=== PATIENT | female | born 1975 | race Caucasian/White ===

== ENCOUNTER 2017-07-22 14:53 | Emergency (ER) | payer MEDICAID, OTHER ==
[2017-07-22] MEDS: KETOROLAC 30 MG INJ IM (17:30)
== END 2017-07-22 18:08 | disposition home or self-care (01) ==
LOC: FTE 14:53
DX: M25.562 Pain in left knee (principal); L28.2 Other prurigo
CPT/HCPCS: 96372; 99284-25

== ENCOUNTER 2017-12-03 14:55 | Emergency (ER) | payer SELFPAY, OTHER, MEDICAID ==
[2017-12-03 16:20] LABS: ADD UMIC YES; UR ASCORBIC ACID NEGATIVE (NEGATIVE); UR BACTERIA FEW /HPF (NONE SEEN); UR BILIRUBIN (Dip) NEGATIVE (NEGATIVE); UR BLOOD (Dip) 3+ mg/dL (NEGATIVE); UR CLARITY SLIGHTLY CLOUDY (CLEAR); UR COLOR YELLOW (YELLOW); UR GLUCOSE (Dip) NEGATIVE (NEGATIVE); UR KETONES (Dip) NEGATIVE (NEGATIVE); UR LEUKOCYTE ESTERASE (Dip) 3+ Leu/ul (NEGATIVE); UR MUCUS FEW /HPF (NONE SEEN); UR NITRITE (Dip) NEGATIVE (NEGATIVE); UR RBC 44 /HPF (0-5); UR SPECIFIC GRAVITY (Dip) 1.016 (1.003-1.030); UR SQUAMOUS EPITHELIAL CELL MODERATE /HPF (FEW); UR TOTAL PROTEIN (Dip) NEGATIVE (NEGATIVE); UR UROBILINOGEN (Dip) NEGATIVE (NEGATIVE); UR WBC 27 /HPF (0-5)
[2017-12-03 16:46] LABS: BARBITURATES Negative (NEGATIVE); BENZODIAZEPINES Negative (NEGATIVE); CANNABINOIDS Negative (NEGATIVE); COCAINE Negative (NEGATIVE); OPIATES Negative (NEGATIVE)
[2017-12-03] MEDS: HYDROCODONE/APAP (5/325) TAB PO (16:59)
[2017-12-03] MEDS: LORAZEPAM 1 MG TAB PO (16:59)
[2017-12-03 17:10] LABS: AMPHETAMINE/METHAMPHETAMINE POSITIVE (NEGATIVE)
== END 2017-12-03 18:07 | disposition home or self-care (01) ==
LOC: FTE 14:55
DX: S00.93XA Contusion of unspecified part of head, initial encounter (principal); N39.0 Urinary tract infection, site not specified; J45.909 Unspecified asthma, uncomplicated; Y04.2XXA Assault by strike against or bumped into by another person, initial encounter
CPT/HCPCS: 70450; 80307; 81001; 99284-25

== ENCOUNTER 2018-07-17 20:07 | Emergency (ER) | payer BC, MEDICAID ==
[2018-07-17 21:39] LABS: ADD UMIC NO; UR ASCORBIC ACID NEGATIVE (NEGATIVE); UR BILIRUBIN (Dip) NEGATIVE (NEGATIVE); UR BLOOD (Dip) NEGATIVE (NEGATIVE); UR CLARITY SLIGHTLY CLOUDY (CLEAR); UR COLOR YELLOW (YELLOW); UR GLUCOSE (Dip) NEGATIVE (NEGATIVE); UR KETONES (Dip) NEGATIVE (NEGATIVE); UR LEUKOCYTE ESTERASE (Dip) NEGATIVE Leu/ul (NEGATIVE); UR NITRITE (Dip) NEGATIVE (NEGATIVE); UR RBC 0 /HPF (0-5); UR SQUAMOUS EPITHELIAL CELL FEW /HPF (FEW); UR TOTAL PROTEIN (Dip) NEGATIVE (NEGATIVE); UR UROBILINOGEN (Dip) NEGATIVE (NEGATIVE); UR WBC 1 /HPF (0-5)
[2018-07-17 22:03] LABS: ADD MAN DIFF? NO
[2018-07-17 22:04] LABS: WHITE BLOOD COUNT 10.2 10^3/ul (4.8-10.8)
[2018-07-17 22:05] LABS: BASOPHIL # 0.1 10^3/ul (0.0-0.1); BASOPHILS % 0.6 % (0.0-2.0); EOSINOPHILS # 0.2 10^3/ul (0.0-0.5); EOSINOPHILS % 2.2 % (0.0-7.0); HEMATOCRIT 36.4 % (37.0-47.0); HEMOGLOBIN 11.9 g/dl (12.0-16.0); LYMPHOCYTES % 29.1 % (15.0-51.0); MEAN CORPUSCULAR HEMOGLOBIN 28.5 pg (29.0-33.0); MEAN CORPUSCULAR HGB CONC 32.7 g/dl (32.0-37.0); MEAN CORPUSCULAR VOLUME 87.1 fl (82.0-101.0); MONOCYTE # 0.6 10^3/ul (0.3-0.9); MONOCYTES % 5.6 % (0.0-11.0); NEUTROPHIL # 6.3 10^3/ul (1.6-7.5); PLATELET COUNT 342 10^3/UL (140-415); RED BLOOD COUNT 4.18 10^6/ul (4.20-5.40)
[2018-07-17 22:25] LABS: INR 0.91; PROTIME 12.4 Sec (11.9-14.9)
[2018-07-17 22:26] LABS: ALANINE AMINOTRANSFERASE 15 IU/L (13-69); ALBUMIN 4.2 g/dl (3.3-4.9); ALBUMIN/GLOBULIN RATIO 1.31; ALKALINE PHOSPHATASE 94 IU/L (42-121); ANION GAP 7 (5-13); ASPARTATE AMINO TRANSFERASE 24 IU/L (15-46); BILIRUBIN,INDIRECT 0.1 mg/dl (0-1.1); BILIRUBIN,TOTAL 0.1 mg/dl (0.2-1.3); BLOOD UREA NITROGEN 17 mg/dl (7-20); CALCIUM 8.9 mg/dl (8.4-10.2); CARBON DIOXIDE 27 mmol/L (21-31); CHLORIDE 102 mmol/L (97-110); CREATININE 0.53 mg/dl (0.44-1.00); Estimated GFR > 60 mL/min (>60); GLUCOSE 89 mg/dl (70-220); POTASSIUM 3.6 mmol/L (3.5-5.1); SODIUM 136 mmol/L (135-144); TOTAL PROTEIN 7.4 g/dl (6.1-8.1)
[2018-07-17 23:26] LABS: TROPONIN-I < 0.012 ng/ml (0.000-0.120)
[2018-07-17] MEDS: ASPIRIN 325 MG TAB PO (23:59)
[2018-07-17] MEDS: HYDROCODONE/APAP (10/325) TAB PO (23:59)
== END 2018-07-18 00:02 | disposition home or self-care (01) ==
LOC: FTE 07-18 00:02
DX: B34.9 Viral infection, unspecified (principal); J45.909 Unspecified asthma, uncomplicated; R07.9 Chest pain, unspecified
CPT/HCPCS: 70450; 71046; 80053; 81001; 81003; 81025; 84484; 85025; 85610; 85730; 87086; 87400; 93005; 99285-25

== ENCOUNTER 2018-09-20 01:12 | Emergency (ER) | payer BC ==
[2018-09-20] MEDS: HYDROCODONE/APAP (10/325) TAB PO (02:56)
== END 2018-09-20 06:55 | disposition home or self-care (01) ==
LOC: FTE 01:12
DX: M79.605 Pain in left leg (principal); J45.909 Unspecified asthma, uncomplicated
CPT/HCPCS: 93971; 99284-25